=== PATIENT | female | born 1950 | race Caucasian/White ===

== ENCOUNTER 2021-08-01 11:21 | Outpatient (CLI) | payer MEDICARE, BC | END 2021-08-01 11:22 | disposition home or self-care (01) | LOC: CSHMAMMO 11:21 | PROVIDERS: ATTEND Obstetrics & Gynecology | DX: Z12.31 Encounter for screening mammogram for malignant neoplasm of breast (principal) | CPT/HCPCS: 77063; 77067 ==

== ENCOUNTER 2022-09-04 10:25 | Outpatient (CLI) | payer MEDICARE, BC | END 2022-09-04 10:26 | disposition home or self-care (01) | LOC: CSHMAMMO 10:25 | PROVIDERS: ATTEND Obstetrics & Gynecology | DX: Z12.31 Encounter for screening mammogram for malignant neoplasm of breast (principal); Z13.820 Encounter for screening for osteoporosis; N95.1 Menopausal and female climacteric states | CPT/HCPCS: 77063; 77067; 77080 ==